=== PATIENT | female | born 1955 ===

== ENCOUNTER 2022-04-28 15:02 | Emergency (ER) | payer SELFPAY ==
[~2022-04-28] VITALS: Ht 170.2 cm; Wt 110.5 kg
[2022-04-28 15:05] VITALS: BP 157/77
[2022-04-28] MEDS ORDERED: ROSU20TA5 PO (15:49)
[2022-04-28] MEDS ORDERED: METO25TA4 PO (15:49)
[2022-04-28] MEDS ORDERED: B-12100010 PO (15:49)
[2022-04-28] MEDS ORDERED: XARE20TA PO (15:49)
[2022-04-28] MEDS ORDERED: DULO30CA9 PO (15:49)
[2022-04-28] MEDS ORDERED: OMEP40CA5 PO (15:49)
== END 2022-04-28 16:33 | disposition left against medical advice (07) ==
LOC: M ED 15:02
DX: Z53.21 Procedure and treatment not carried out due to patient leaving prior to being seen by health care provider (principal)